=== PATIENT | male | born 1950 | race Caucasian/White ===

== ENCOUNTER 2019-08-03 17:12 | Inpatient (IN) | payer MEDICARE, OTHER ==
[~2019-08-03] VITALS: Ht 170.2 cm; Wt 79.5 kg
[2019-08-03 17:53] LABS: Basophils # (auto) 0 uL; Basophils % (auto) 0.5 % (0.0-2.0); Eosinophils # (auto) 0.1 uL; Eosinophils % (auto) 1.5 % (0.0-7.0); Hematocrit 49.4 % (41.0-53.0); Hemoglobin 17.1 g/dL (13.5-17.5); Lymphocytes # (auto) 1.7 uL; Lymphocytes % (auto) 24.8 % (10.0-50.0); Mean Corpuscular Hemoglobin 33.7 pg (28.0-32.0); Mean Corpuscular Hgb Conc. 34.6 g/dL (32.0-36.0); Mean Corpuscular Volume 97.7 fL (80.0-100.0); Monocytes # (auto) 0.7 uL; Monocytes % (auto) 9.8 % (0.0-12.0); Neutrophils # (auto) 4.3 uL; Neutrophils % (auto) 63.4 % (37.0-80.0); Nucleated Red Blood Cells % 0.1 %; Platelet Count (auto) 176 10^3/uL (140-450); Red Blood Cells 5.06 10^6/uL (4.5-5.90); Red Cell Distribution Width 13.3 % (11.8-14.3); White Blood Cell 6.9 10^3/uL (4.4-10.8)
[2019-08-03 18:11] LABS: Albumin 4.1 g/dL (3.4-5.0); Calcium 9.2 mg/dL (8.5-10.1); Potassium 3.7 mmol/L (3.5-5.1)
[2019-08-03 18:15] LABS: BUN/Creatinine Ratio 13.5; Bilirubin, Total 0.8 mg/dL (0.2-1.0)
[2019-08-03 18:48] LABS: Urine WBC None Seen /hpf (0 - 3)
[2019-08-03] MEDS ORDERED: SODIUM CHLORIDE 0.9% 1,000 ML IVB ONE (19:14)
[2019-08-03] MEDS ORDERED: ONDANSETRON HCL 4 MG/2 ML VIAL IV ONE (19:15)
[2019-08-03] MEDS ORDERED: MORPHINE SULFATE 4 MG/ML SYR/VIAL IV ONE (19:15)
[2019-08-03] MEDS ORDERED: cefTRIAXone 1GM/50ML D5W 50 ML IV ONE (19:15)
[2019-08-03 19:29] LABS: Urine Bacteria NONE SEEN /hpf (None Seen); Urine Blood Negative /uL (Negative); Urine Mucus FEW (None Seen); Urine Specific Gravity 1.019 (1.001-1.035)
[2019-08-03 19:49] LABS: INR 0.95 (0.9-1.15); Partial Thromboplastin Time 27.8 sec (23.64-32.05)
[2019-08-03] MEDS ORDERED: NITROGLYCERIN 0.4 MG SL TAB SL PRN (20:15)
[2019-08-03] MEDS ORDERED: MORPHINE SULF INJ 2 MG/ML SYRINGE 1ML IV PRN (20:15)
[2019-08-03] MEDS ORDERED: TEMAZEPAM 15 MG CAP PO PRN (21:00)
[2019-08-03] MEDS ORDERED: ONDANSETRON HCL 4 MG/2 ML VIAL IV PRN (21:00)
[2019-08-03] MEDS ORDERED: ACETAMINOPHEN 325 MG TAB PO PRN (21:00)
[2019-08-03 21:10] VITALS: BP 112/68
--- NOTE | 2019-08-03 21:10 | NUR ---
MS admit from [facility] admitted to tele/MS. Patient oriented to Agata Tobin RN primary RN, unit, room, bed, and unit policies regarding patient care and visiting hours. Patient weighed by bedscale and encouraged to call if they need something. All questions and concerns addressed, patient verbalized understanding. Bed is in lowest locked position with bed rails up x2 and call light is within reach of the patient. Patient will be NPO and to complete check list in case patient is to go to procedure the next day.
[2019-08-03] MEDS: FAMOTIDINE 20 MG TAB PO SCH (22:29)
[2019-08-04] MEDS ORDERED: ATEN-60 PO (00:16)
[2019-08-04] MEDS ORDERED: INFLUENZA QUAD 2019-2020 0.5ml SYRG IM ONE (00:45)
[2019-08-04] MEDS: SODIUM CHLORIDE 0.9% 1,000 ML IV SCH ×4 (01:00→21:16)
[2019-08-04 05:00] VITALS: BP 114/72
--- NOTE | 2019-08-04 05:01 | NUR ---
Performed EKG: Performed ekg as doctor scheduled. Normal sinus rhythm. Patient has no symptoms of chest pain or pain. Tolerated well. Resting in bed with breaths even and unlabored.
--- NOTE | 2019-08-04 05:15 | NUR ---
CHG: Performed CHG bath on the patient and provided patient with a new gown in case patient is to go down for procedure today. Patient tolerated well. Check list is completed and placed in chart.
[2019-08-04] MEDS: metroNIDAZOLE 500MG/100ML 100 ML IV SCH ×3 (05:47→21:57)
[2019-08-04 07:20] LABS: Basophils # (auto) 0 uL; Eosinophils # (auto) 0.1 uL; Monocytes # (auto) 0.4 uL
[2019-08-04 07:22] LABS: Basophils % (auto) 0.9 % (0.0-2.0); Hematocrit 43.5 % (41.0-53.0); Hemoglobin 15.5 g/dL (13.5-17.5); Lymphocytes % (auto) 24.4 % (10.0-50.0); Mean Corpuscular Hemoglobin 34.6 pg (28.0-32.0); Mean Corpuscular Hgb Conc. 35.6 g/dL (32.0-36.0); Mean Corpuscular Volume 97.1 fL (80.0-100.0); Neutrophils # (auto) 2.5 uL; Neutrophils % (auto) 63.7 % (37.0-80.0); Platelet Count (auto) 147 10^3/uL (140-450); Red Blood Cells 4.48 10^6/uL (4.5-5.90); Red Cell Distribution Width 13.6 % (11.8-14.3); White Blood Cell 3.9 10^3/uL (4.4-10.8)
[2019-08-04 07:35] LABS: INR 0.95 (0.9-1.15); Partial Thromboplastin Time 26.5 sec (23.64-32.05)
[2019-08-04 07:37] LABS: Albumin 3.3 g/dL (3.4-5.0); Calcium 8.1 mg/dL (8.5-10.1); Magnesium 2.3 mg/dL (1.6-2.6); Potassium 3.9 mmol/L (3.5-5.1)
[2019-08-04 07:38] LABS: BUN/Creatinine Ratio 12.5; Bilirubin, Total 0.6 mg/dL (0.2-1.0); Phosphorus 2.1 mg/dL (2.5-4.90); Total Protein 6.6 g/dL (6.4-8.2)
--- NOTE | 2019-08-04 07:40 | NUR ---
Opening Note Assumed care of patient, he is A & O x4, no s/s of distress at this time. POC discussed with patient. He is comfortable at this time. Bed is in lowest, locked position, call light within reach, bed rails up x2. Will continue to monitor Q1h and PRN.
[2019-08-04 07:42] LABS: Cholesterol 184 mg/dL (< 200); HDL Cholesterol 26 mg/dL (40-59); Triglycerides 520 mg/dL (< 150)
--- NOTE | 2019-08-04 08:03 | NUR ---
Patient to Pre-op. Report given to ELIEL Garsia in pre-op. Patient in no s/s of distress at time.
[2019-08-04] MEDS ORDERED: ceFAZolin 1GM/50ML 50 ML IV ONE (08:51)
[2019-08-04] MEDS ORDERED: SUCCINYLCHOLINE CHLORIDE 20 MG/ML 10ML VIAL IV ONE (08:56)
[2019-08-04] MEDS ORDERED: fentaNYL CITRATE 100 MCG/2 ML VL ONE ×3 (08:59→10:00)
[2019-08-04] MEDS ORDERED: MIDAZOLAM HCL 1MG/1ML-2 ML VIAL ONE (08:59)
[2019-08-04] MEDS ORDERED: PROPOFOL 10 MG/ML 20 ML IV ONE (08:59)
[2019-08-04] MEDS ORDERED: ROCURONIUM 10MG/ML 10ML VIAL IV ONE (08:59)
[2019-08-04] MEDS: cefTRIAXone 1GM/50ML D5W 50 ML IV SCH ×2 (09:00→21:16)
[2019-08-04] MEDS ORDERED: ENOXAPARIN SOD 40 MG/0.4 ML SYRINGE SC SCH (10:00)
[2019-08-04] MEDS ORDERED: ePHEDrine SULFATE 50 MG/ML AMP IV PRN (10:15)
[2019-08-04] MEDS ORDERED: HYDROmorphone HCL 2 MG/ML VL IV PRN ×2 (10:15)
[2019-08-04] MEDS ORDERED: ONDANSETRON HCL 4 MG/2 ML VIAL IV PRN (10:15)
[2019-08-04] MEDS ORDERED: hydrALAZINE HCL 20 MG/ML VL IV PRN (10:15)
--- NOTE | 2019-08-04 10:55 | NUR ---
Patient returned from OR Patient is A & O x4, no s/s of distress at this time. Report from ELIEL Torres. Patient received Dilaudid prior to arrival. Will monitor pain. Vital signs stable. Patient on 3L nasal cannula. There are 3 incision sites to the midline of the abdomen, each covered with nonadherent gauze pad and tape. the middle incision site has a spot of red blood, will continue to monitor. Patient is otherwise comfortable at this time.
[2019-08-04 13:00] VITALS: BP 141/86
[2019-08-04] MEDS: HYDROcodone-ACET 5/325MG TAB PO PRN (15:11)
[2019-08-04] MEDS: FAMOTIDINE 20 MG TAB PO SCH ×2 (15:11→21:16)
[2019-08-04 17:11] VITALS: BP 110/67
--- NOTE | 2019-08-04 18:22 | NUR ---
Patient off of unit to OR Addendum: 08/04/19 at 1824 by EMETERIO NOLAND RN RN Amended: Links added.
[2019-08-04 22:00] VITALS: BP 132/97
[2019-08-05] MEDS: HYDROcodone-ACET 5/325MG TAB PO PRN (04:40)
[2019-08-05] MEDS: SODIUM CHLORIDE 0.9% 1,000 ML IV SCH ×2 (04:44→14:27)
[2019-08-05 05:00] VITALS: BP_SYST 124; BP_SYST 138; BP_DIAS 78; BP_DIAS 80
[2019-08-05] MEDS: metroNIDAZOLE 500MG/100ML 100 ML IV SCH ×3 (05:59→23:26)
[2019-08-05 06:32] LABS: Basophils # (auto) 0 uL; Eosinophils # (auto) 0 uL; Eosinophils % (auto) 0.1 % (0.0-7.0); Hemoglobin 12.7 g/dL (13.5-17.5); Lymphocytes # (auto) 0.9 uL; Mean Corpuscular Volume 97.7 fL (80.0-100.0); Monocytes # (auto) 0.7 uL; Monocytes % (auto) 9.5 % (0.0-12.0); Neutrophils # (auto) 5.5 uL; Neutrophils % (auto) 77.2 % (37.0-80.0); Red Cell Distribution Width 13.2 % (11.8-14.3); White Blood Cell 7.1 10^3/uL (4.4-10.8)
[2019-08-05 06:35] LABS: Basophils % (auto) 0.2 % (0.0-2.0); Hematocrit 35.6 % (41.0-53.0); Mean Corpuscular Hemoglobin 34.8 pg (28.0-32.0); Mean Corpuscular Hgb Conc. 35.6 g/dL (32.0-36.0); Platelet Count (auto) 164 10^3/uL (140-450); Red Blood Cells 3.64 10^6/uL (4.5-5.90)
[2019-08-05 06:50] LABS: BUN/Creatinine Ratio 11.6; Calcium 7.8 mg/dL (8.5-10.1); Potassium 3.7 mmol/L (3.5-5.1)
--- NOTE | 2019-08-05 07:40 | NUR ---
Patient in bed, awake, oriented x4, no acute distress noted.
[2019-08-05 09:00] VITALS: BP 138/81
--- NOTE | 2019-08-05 09:00 | NUR ---
Patient in bed, awake, stated she has not passed gas yet. Addendum: 08/05/19 at 0947 by Griselda Pepe RN he has not passed gas yet.
[2019-08-05] MEDS: FAMOTIDINE 20 MG TAB PO SCH ×2 (09:40→22:28)
[2019-08-05] MEDS: cefTRIAXone 1GM/50ML D5W 50 ML IV SCH ×2 (09:40→22:28)
--- NOTE | 2019-08-05 11:57 | NUR ---
Dr. Caal at bedside. Patient stated he started passing gas now. ordered Full Liquid Diet for now, if patient passes gas more, advance diet to Soft Diet.
[2019-08-05 13:00] VITALS: BP_SYST 129; BP_SYST 136; BP_DIAS 76; BP_DIAS 84
--- NOTE | 2019-08-05 14:34 | NUR ---
Patient in bed, denies pain.
[2019-08-05 17:09] VITALS: BP 123/83
[2019-08-05 17:10] VITALS: BP 126/69
--- NOTE | 2019-08-05 19:20 | NUR ---
Opening Shift Note Assumed care of patient, awake and alert. No S/S of distress/SOB or pain. Bed in lowest locked position, side rails up x 2, call light within reach. Midline incisions noted with minimal sanguinous drainage noted, but otherwise all clean, dry, and intact. Abdominal binder in place. Incentive spirometer at bedside, patient educated on use, patient verbalized understanding. Patient states he is passing gas, no bowel movement yet. Instructed on POC and to call for assist PRN, will continue to monitor for changes Q1hr and PRN.
[2019-08-05 21:21] VITALS: BP_SYST 124; BP_SYST 97; BP_DIAS 58; BP_DIAS 79
--- NOTE | 2019-08-05 22:00 | NUR ---
Regarding Pain Patient offered pain medication, patient refusing stating, "It comes and goes, I'm fine." No s/s of distress. Will continue to monitor.
[2019-08-06] MEDS: SODIUM CHLORIDE 0.9% 1,000 ML IV SCH (02:48)
[2019-08-06 04:57] VITALS: BP 148/81
[2019-08-06 05:40] LABS: Hematocrit 31.7 % (41.0-53.0); Hemoglobin 11.5 g/dL (13.5-17.5)
[2019-08-06 06:03] LABS: Bilirubin, Total 0.6 mg/dL (0.2-1.0)
[2019-08-06] MEDS: metroNIDAZOLE 500MG/100ML 100 ML IV SCH ×2 (06:04→13:53)
[2019-08-06 06:43] LABS: Bilirubin, Direct 0.2 mg/dL (0-0.2)
--- NOTE | 2019-08-06 06:47 | NUR ---
Closing Note Patient lying in bed, eyes closed, respirations even and unlabored, appears asleep. Patient awakens to name and touch. No s/s of distress. Bed in lowest locked position, side rails up x2, call light within reach. Will endorse care to dayshift RN.
--- NOTE | 2019-08-06 07:40 | NUR ---
Patient in bed, awake, oriented x4, no acute distress noted.
[2019-08-06 09:00] VITALS: BP 139/78
[2019-08-06] MEDS: cefTRIAXone 1GM/50ML D5W 50 ML IV SCH (09:35)
[2019-08-06] MEDS: FAMOTIDINE 20 MG TAB PO SCH (09:35)
--- NOTE | 2019-08-06 10:04 | NUR ---
Dr. Caal at bedside. ordered Soft Diet for lunch, if patient able to tolerate it, and patient able to have bowel movement today, she will put in discharge orders, patient to make a follow up appointment with Dr. Swan's office (Post Op) as outpatient.
[2019-08-06] MEDS ORDERED: LEVO500T21 PO (11:34)
[2019-08-06] MEDS ORDERED: METR500T PO (11:34)
--- NOTE | 2019-08-06 13:50 | NUR ---
Patient said he had a bowel movement around 12:30 pm today. No nausea/vomiting noted after Soft Diet for lunch.
--- NOTE | 2019-08-06 15:30 | NUR ---
Discharge instructions given as ordered. Encourage to follow up with PMD as instructed. All questions and concerns addressed. Patient verbalized understanding. Medication reconciliation form completed and copy given to patient. Abdominal binder in placed, instructions given to keep abdominal binder in place when getting up and walking until the doctor ordered to discontinue using it. Surgical incision clean, dry and intact. IV removed with catheter intact, pressure dressing applied. Patient is ambulatory, steady gait noted, patient refused to be taken to vehicle via wheelchair, patient with all personal belongings, stated he will go to the Main Lobby and wait for his friend to pick him up. No distress noted at time of departure.
== END 2019-08-06 15:30 | disposition home or self-care (01) | DRG 343 ==
LOC: ER 17:19 → OVERFLOW 17:20 → CENTRAL 21:09
PROVIDERS: ADMIT Hospitalist; ATTEND Internal Medicine
PROC: 0DTJ4ZZ Resection of Appendix, Percutaneous Endoscopic Approach (ICD-10-PCS; principal; 2019-08-04 08:54)
DX: K35.30 Acute appendicitis with localized peritonitis, without perforation or gangrene (principal); E78.5 Hyperlipidemia, unspecified; I10 Essential (primary) hypertension; N40.0 Benign prostatic hyperplasia without lower urinary tract symptoms; K40.20 Bilateral inguinal hernia, without obstruction or gangrene, not specified as recurrent; E11.9 Type 2 diabetes mellitus without complications; E66.01 Morbid (severe) obesity due to excess calories; E78.1 Pure hyperglyceridemia; Z82.49 Family history of ischemic heart disease and other diseases of the circulatory system; Z83.3 Family history of diabetes mellitus; Z68.27 Body mass index [BMI] 27.0-27.9, adult; Z79.899 Other long term (current) drug therapy
CPT/HCPCS: 36415; 71045; 74176; 76705; 80048; 80053; 80061; 80076; 81001; 83036; 83735; 84100; 85014; 85018; 85025; 85610; 85730; 86850; 86900; 86901; 93005; 96361; 96365; 96375; G0378; J0330; J0690; J0696; J2250; J2405; J2704; J3490